=== PATIENT | female | born 1940 | race Caucasian/White ===

== ENCOUNTER 2016-05-31 16:34 | Inpatient (IN) ==
[2016-05-31] MEDS ORDERED: MORPHINE IM ONE (16:45)
[2016-05-31] MEDS ORDERED: ZOFRAN IM ONE (16:45)
--- NOTE | 2016-05-31 16:45 | PROVIDER DOCUMENTATION ---
HPI-Musculoskeletal Pain/Inj - GENERAL Source: patient - HX OF PRESENT ILLNESS-MUSKULOSKELTAL Quality of Pain: reports: aching Severity in ED: mild Onset/Duration: this morning Timing: still present Modifying Factors: improves with: nothing Any recent injury?: Yes (fell ) Locality of Occurance: Home Similar Symptoms Previously?: No Recently seen or treated by another doctor?: No - FALL INJURY Location of Pain/Injury: reports: lower extremity (R hip) Pain Radiation: reports: no radiation Reason for Fall: reports: tripped Symptoms prior to fall:: reports: none Loss of Consciousness: no loss of consciousness Injury Associated Symptoms: denies: arm pain, back/neck pain, chest pain, diaphoresis, dizziness, headaches, joint pain, muscle aches, nausea, puncture wound, shortness of breath, sensory/motor loss, snap/crack/pop sensation, pain with inspiration, unable to bear weight, vomiting, weakness, trouble walking - HIP/PELVIS PAIN/INJURY Hip Pain Location: reports: hip (R) Pain Radiation: reports: upper legs (R upper thigh) Context / Method of Injury: reports: fall Associated Symptoms: denies: loss of bladder control, loss of bowel control, lower back pain, muscle spasms, numbness in legs/feet, sensory/motor loss, tingling in legs/feet, weakness in legs/feet - LOWER EXTREMITY PAIN/INJURY Lower Extremities Pain: thigh: right (upper thigh ) Context / Method of Injury: reports: fell Associated Symptoms: denies: loss of bladder control, loss of bowel control, lower back pain, muscle spasms, numbness in legs/feet, sensory/motor loss, tingling in legs/feet, weakness in legs/feet <Samanta Jauregui - Last Filed: 05/31/16 17:27> <Greer Carbajal - Last Filed: 05/31/16 18:44> <Jin Milligan - Last Filed: 05/31/16 18:53> - GENERAL Stated Complaint: FALL, RT HIP PAIN, RT FEMUR PAIN Time Seen by Provider: 05/31/16 16:40 - HX OF PRESENT ILLNESS-MUSKULOSKELTAL Nature of Presenting Problem: Pt is 75 y/o F presents to the ED with R hip pain. Pt states she was vacuuming and tripped and fell on R lateral hip. Pt denies LOC. Pt denies any other injuries. Pt states she is on blood thinners (Samanta Jauregui) Review of Systems - Adult - REVIEW OF SYSTEMS - ADULT Constitutional: reports: no symptoms reported Eyes: reports: no symptoms reported Ears, Nose, Mouth & Throat: reports: no symptoms reported Cardiovascular: reports: no symptoms reported Respiratory: reports: no symptoms reported Gastrointestinal: reports: no symptoms reported Genitourinary: reports: no symptoms reported Musculoskeletal: reports: joint pain (R hip), other (R thigh pain). denies: bone pain, neck pain Integumentary: reports: no symptoms reported Neurological: reports: no symptoms reported Psychiatric: reports: no symptoms reported Endocrine: reports: no symptoms reported Hematologic/Lymphatic: reports: no symptoms reported Allergic/Immunologic: reports: no symptoms reported All Other Systems: Reviewed and Negative <Samanta Jauregui - Last Filed: 05/31/16 17:27> Past History - Adult - PAST MEDICAL HISTORY-ADULT Review of Records: reports: Nursing Assessment Review, Medications Reviewed, Social history reviewed & non-contributory. Major Childhood Illnesses: reports: denies history Cardiovascular: reports: HTN Respiratory: reports: denies history Gastrointestinal: reports: denies history Obstetrical/Gynecological: reports: denies history Genitourinary: reports: denies history Musculoskeletal: reports: denies history Neurological: reports: denies history Endocrine/Immune: reports: Diabetes Other Conditions: reports: denies history - PRIOR SURGERIES/PROCEDURES Surgical/Procedure History: reports: reviewed, not pertinent - IMMUNIZATION STATUS Childhood Immunizations: See Nurse Assessment Flu Vaccine: See Nurse Assessment - FAMILY HISTORY Family History: reviewed, not pertinent - SOCIAL HISTORY Smoking: denies Substance Use: denies Living Situation: family <Samanta Jauregui - Last Filed: 05/31/16 17:27> Physical Exam-Injury Related - Physical Exam-Injury Related Initial Vital Signs Reviewed: Yes General Appearance: appears well, alert, no apparent distress Eyes: PERRL/EOMI, pink conjunctivae, fundi clear, no AV nicking Head, Ears, Nose, Mouth & Throat: normocephalic/atraumatic, moist mucous membranes, normal ENT inspection, TMs normal, pharynx normal Neck: non-tender, full range of motion, supple, normal inspection Respiratory: chest non-tender, lungs clear, normal breath sounds, no pleuratic chest pain, no respiratory distress, no accessory muscle use Cardiovascular: normal peripheral pulses, regular rate, rhythm, no edema, no gallop, no JVD, no murmur Peripheral Pulses: dorsalis-pedis (R): 2+, dorsalis-pedis (L): 2+ Abdominal Exam: normal bowel sounds, non tender, soft, no organomegaly, no pulsatile mass Lymphatic: no adenopathy Back Exam: normal inspection, no CVA tenderness, no vertebral tenderness Extremity: normal range of motion, normal gait, no pedal edema, no calf tenderness, normal capillary refill, tenderness (point tenderness to lateral R thigh) Integumentary: normal color, warm/dry Neurologic: grossly normal Psych/Mental Status: normal mood/affect, oriented x 3 <Samanta Jauregui - Last Filed: 05/31/16 17:27> Progress <Samanta Jauregui - Last Filed: 05/31/16 17:27> - CT/MRI 1 CT Study: Cervical Spine Impression: Normal CT Results: No fx/subluxation, degen facet disease C2-3, 3-4 on L: Dr. Ball( rad) 2 CT Study: Head Impression: Normal CT Results: chronic ischemic white matter disease, no bleed or mass:Dr. Ball (rad) 3 CT Study: Pelvis Impression: Abnormal (No fx. Rt hamstring hematoma, at least 7 cm. Gas in bladder, possible emphysematous cystitis: Dr. Ball(radiologist)) <Greer Carbajal - Last Filed: 05/31/16 18:44> <Jin Milligan - Last Filed: 05/31/16 18:53> - PLAN OF CARE/RESULTS Progress/Plan/Lab Results: Orders Category Date Time Status HEAD/C-SPINE W/O CONTRAST [CT] Stat Exams 05/31/16 16:41 Ordered PELVIS W/O CONTRAST [CT] Stat Exams 05/31/16 16:41 Ordered Morphine Med 05/31/16 16:45 Once 2 mg IM NOW ONE Ondansetron [Zofran] Med 05/31/16 16:45 Once 4 mg IM NOW ONE Vital Signs - 24 hr 05/31/16 17:17 Temperature 97.5 F L Pulse Rate 90 Respiratory 18 Rate Blood Pressure 126/59 O2 Sat by Pulse 98 Oximetry (Samanta Jauregui) Orders Category Date Time Status HEAD/C-SPINE W/O CONTRAST [CT] Stat Exams 05/31/16 16:41 Taken PELVIS W/O CONTRAST [CT] Stat Exams 05/31/16 16:41 Taken CefTRIAXONE 1 GM/NS [Rocephin 1 gm/Ns] 50 ml Med 05/31/16 18:49 Active IV NOW Morphine Med 05/31/16 16:45 Discontinued 2 mg IM NOW ONE Morphine Med 05/31/16 17:39 Discontinued 2 mg IV NOW ONE Morphine Med 05/31/16 18:49 Once 2 mg IV NOW ONE Ondansetron [Zofran] Med 05/31/16 16:45 Discontinued 4 mg IM NOW ONE Ondansetron [Zofran] Med 05/31/16 17:39 Discontinued 4 mg IV NOW ONE Vital Signs Temp Pulse Resp BP Pulse Ox 05/31/16 17:17 97.5 F L 90 18 126/59 98 No Known Allergies Allergy (Verified 05/31/16 17:35) Amlodipine [Norvasc] 5 mg PO HS 09/18/13 Glipizide [Glipizide ER] 10 mg PO BID 09/18/13 Isosorbide Mononitrate E.r. [Imdur] 75 mg PO HS 09/18/13 Lisinopril 40 mg PO DAILY 09/18/13 Metformin [Glucophage] 1,000 mg PO BID 09/18/13 Metoprolol [Lopressor] 40 mg PO HS 09/18/13 Clopidogrel Bisulfate [Plavix] 75 mg PO DAILY #0 12/02/15 Aspirin 325 mg PO DAILY 05/31/16 Pt is feeling well. She is currently seeing Dr. Francisco for her chronic bladder issues. Will d/c home. she will be in the care of her family carolyn. (Jin Milligan) Departure <Samanta Jauregui - Last Filed: 05/31/16 17:27> <Greer Carbajal - Last Filed: 05/31/16 18:44> - Departure Time of Disposition Order: 18:50 Certified Medical Emergency: Emergent <Jin Milligan - Last Filed: 05/31/16 18:53> - Departure DIAGNOSIS: Cystitis Hamstring injury Qualifiers: Encounter type: initial encounter Laterality: right Qualified Code(s): S76.301A - Unspecified injury of muscle, fascia and tendon of the posterior muscle group at thigh level, right thigh, initial encounter Disposition: HOME 01 Condition: Good Additional Instructions: Take medication as prescribed. Rest, ice and elevate leg. Follow up with an orthopedist and your urologist. ED Follow Up Instructions: You have been treated by a care provider in the Emergency Department. These instructions are being provided to you so you can have an understanding of how to care for yourself upon discharge. Upon discharge from the Emergency Department, you are responsible for making arrangements for follow-up care by a physician of your choice. Take all prescribed medications as directed. Return to the Emergency Department immediately for any new or worsening symptoms. You may call the Physician Referral phone number at [phone] to obtain a list of Physicians who are taking new patients. Prescriptions: Nitrofurantoin Monohyd/M-Cryst [Macrobid 100 mg Capsule] 100 mg PO BID #10 capsule Hydrocodone/APAP 5 mg/325 mg [Tresckow-5] 1 each PO Q6H PRN PRN #12 tablet PRN Reason: Pain Ondansetron HCl [Zofran] 4 mg PO Q4H PRN PRN #20 tablet PRN Reason: Nausea Referrals: None,PCP [Primary Care Provider] - Renae Hernandez MD [STAFF PHYSICIAN] - Vitaly Francisco MD [STAFF PHYSICIAN] - Attestation - Scribe Verification/Attestation Scribe:: Samanta Jauregui Acting as Scribe for:: Solomon Harrell Scribe documention review:: This chart was documented by a scribe and accurately reflects the service the provider performed and the decisions made by the provider. <Samanta Jauregui - Last Filed: 05/31/16 17:27> - Physician/ TINA Attestation Patient care was provided by Advanced Practice Provider:: Yes Advanced Practice Provider:: Jin Milligan Advanced Practice Provider documentation review:: The Mid-level provider documentation, treatment plan and medical decision making was reviewed by the physician who agrees with all treatment and medical decision making by the P. <Jin Milligan - Last Filed: 05/31/16 18:53> Physician Attestation
[2016-05-31] MEDS ORDERED: MORPHINE IV ONE ×2 (17:39→18:49)
[2016-05-31] MEDS ORDERED: ZOFRAN IV ONE (17:39)
[2016-05-31] MEDS ORDERED: ROCEPHIN 1 GM/NS 50 ML IV ONE (18:49)
[2016-05-31] MEDS ORDERED: NS 1,000 ML IV ONE (20:18)
[2016-05-31] MEDS ORDERED: DILAUDID IV ONE (20:31)
[2016-05-31 22:23] LABS: MANUAL DIFF NEEDED? NO
[2016-05-31 22:23] LABS: URINE MICRO REVIEW NEEDED? NO; URINE SOURCE CLEAN CATCH
[2016-05-31 22:28] LABS: BILIRUBIN URINE NEGATIVE (NEGATIVE); BLOOD URINE NEGATIVE (NEGATIVE); COLOR YELLOW; GLUCOSE URINE 100 mg/dL (NEGATIVE); LEUKOCYTES URINE MODERATE (NEGATIVE); NITRITE URINE NEGATIVE (NEGATIVE); PROTEIN URINE TRACE mg/dL (NEGATIVE); TURBIDITY URINE CLEAR (CLEAR); UROBILINOGEN URINE NORMAL (NORMAL)
[2016-05-31 22:28] LABS: BASO% 0.3 % (0.0-0.8); EOS# 0.11 X1000 (0.0-0.7); EOS% 0.7 % (0.0-10.0); HEMATOCRIT 29.6 % (37.0-47.0); HEMOGLOBIN 9.8 g/dL (12.0-16.0); IMM GRAN# 0.03 X1000 (0.0-0.04); IMM GRAN% 0.2 % (0.0-0.5); LYMPH# 2.41 X1000 (1.2-3.4); LYMPH% 16.3 % (20.5-51.1); MCHC 33.1 g/dL (33-37); MCV 90.5 FL (81-99); MONO# 0.91 X1000 (0.11-0.59); MONO% 6.1 % (1.7-9.3); MPV 10.8 FL (7.4-10.4); NEUT% 76.4 % (42.2-75.2); PLT 224 X1000 (130-400); RBC 3.27 XMIL (4.2-5.4)
[2016-05-31 22:29] LABS: UR EPITHELIAL CELLS >10 /HPF (<10); URINE BACTERIA 4+ /HPF; URINE CULTURE NEEDED? YES; URINE RBC <10 /HPF (<10); URINE WBC <10 /HPF (<10)
[2016-05-31 22:43] LABS: ALBUMIN 3.1 g/dL (3.5-5.0); POTASSIUM 4.9 mmol/L (3.5-5.1); TOTAL BILIRUBIN 0.16 mg/dL (0.20-1.00); TOTAL PROTEIN 5.9 g/dL (6.3-8.3)
[2016-06-01 00:01] LABS: INR 1.07; PROTIME 11.3 Seconds (9.2-11.7); PTT 23.6 Seconds (22.0-36.0)
[2016-06-01] MEDS ORDERED: NS 1,000 ML IV SCH (01:29)
[2016-06-01] MEDS ORDERED: TYLENOL PO PRN (01:29)
[2016-06-01] MEDS ORDERED: ZOFRAN IV PRN (01:29)
[2016-06-01] MEDS: PROTONIX IV SCH (02:27)
[2016-06-01] MEDS: MORPHINE IV PRN ×5 (02:27→23:19)
[2016-06-01] MEDS: SODIUM CHLORIDE 0.9% INJ SCH (02:27)
--- NOTE | 2016-06-01 03:32 | HISTORY AND PHYSICAL ---
PRIMARY CARE PROVIDER: Lars Bee MD CHIEF COMPLAINT: Fall with right hip pain. HISTORY OF PRESENT ILLNESS: Ms. Rodriguez is a 75-year-old female who reports that this evening she was vacuuming and tripped and fell, landing on her right lateral hip. The patient denies hitting her head. She denies any loss of consciousness. She denies any other injuries than her right hip and right upper leg pain. The patient does report that she takes Plavix and aspirin. Upon evaluation in the ER, the patient did have a CT head and C spine performed as well as a pelvis CT which were all negative for any acute injuries. After this initial evaluation in the ER, they did attempt to have the patient stand and try to ambulate, though upon standing the patient became very lightheaded, clammy, and had a near syncopal episode. She also reported that the pain upon standing in her right leg was excruciating. During this time, the patient's blood pressure was taken which did show a reading of 79/47. Secondary to this, the patient did have a normal saline 1 L bolus. As well, labs were ordered and the patient did go for further x-ray studies with a femur, [address] and x-rays were negative for any acute injury or fractures. The patient's hemoglobin and hematocrit are 9 and 29, which is a significant drop from the last known results in January of 2016 of hemoglobin 12.8 and hematocrit 38.6. The patient denies any known problem with anemia. Upon examination in the ER, the patient was found to be pale. Conjunctivae were pale as well. The patient has discoloration and swelling noted to her right upper leg in the lateral thigh and posterior thigh area. She also reports this area is very tender. She also reports that she is having pain from her hip down to her knee and this is a pressure type pain. She denies any headache. She did report some dizziness, though this was upon standing when she had her near syncopal episode. She denies any chest pain, shortness of breath, nausea, vomiting, or constipation. The patient reports that she has been having diarrhea for quite some time, though she reports this started when she began taking metformin. The patient denies any dysuria or urinary frequency, though does report that for the past 2 months, she has had lower abdominal pain as well as lower back pain. She does have a long history of chronic cystitis and recently did undergo surgery for correction of a bladder diverticulum by Dr. Francisco. She reports that since this surgery, her number of urinary tract infections has decreased, though her symptoms of lower abdominal pain as well as back pain are the symptoms she normally experiences when she has a urinary tract infection. She states that she has not seen her doctor for her urinary symptoms and was going to try to let her body take care of this on its own. Other than her right hip and right upper leg pain, the patient denies any other pain or injuries. At this time, we will admit the patient for further treatment and evaluation of her fall with right lower extremity injury and hematoma as well as her anemia. She will be admitted for observation services. REVIEW OF SYSTEMS: A 14-point review of systems was conducted with the patient and all were negative except for pertinent positives mentioned in the above HPI. PAST MEDICAL HISTORY: 1. Rheumatoid arthritis. 2. Chronic cystitis. 3. Cystocele. 4. Coronary artery disease status post myocardial infarction with percutaneous coronary intervention with 3 stents. 5. Hyperlipidemia. 6. Hypertension. 7. Insomnia. 8. Back pain. 9. Osteoporosis. 10.Diabetes mellitus type 2. 11.COPD. 12.Peripheral vascular disease. PAST SURGICAL HISTORY: 1. Percutaneous coronary intervention with stent placement x3. 2. Right carotid stent placement. 3. Recent laparoscopic bladder diverticulectomy in November of 2015. 4. History of renal stone with lithotripsy. SOCIAL HISTORY: The patient denies any past or present tobacco, alcohol or illicit drug use. She is and lives with her . FAMILY HISTORY: Positive for coronary artery disease, hypertension, diabetes mellitus. ALLERGIES: The patient reports no known allergies. HOME MEDICATIONS: 1. Aspirin 325 mg p.o. daily. 2. Norvasc 5 mg p.o. at nighttime. 3. Imdur 75 mg p.o. at nighttime. 4. Metformin 1000 mg p.o. b.i.d. 5. Lisinopril 40 mg p.o. daily. 6. Glipizide extended release 10 mg p.o. b.i.d. 7. Plavix 75 mg p.o. daily. 8. Metoprolol 50 mg p.o. at nighttime. 9. Zofran 4 mg p.o. every 4 hours p.r.n. for nausea. 10.Jachin 5 mg p.o. every 6 hours p.r.n. for pain. DIAGNOSTIC DATA AND LABORATORY RESULTS: White blood cell count 14.83, hemoglobin 9.8, hematocrit 29.6, platelet count 224. PT 11.3, INR 1.07, PTT 23.6. Sodium 141, potassium 4.9, chloride 105, bicarb 19, BUN 21, creatinine 1.0, GFR 54, glucose 206, calcium 8. Liver function tests are within normal limits. Urinalysis was obtained via cath, was positive for trace protein, glucose, moderate leukocytes, greater than 10 epithelial cells and 4+ bacteria, though was nitrite negative. CT head, C spine. On C spine, no fracture or subluxation noted. Degenerative facet disease at C2-C3, as well as C3-C4 on the left. CT of the head showed chronic ischemic white matter disease. No blood or mass. CT pelvis without contrast showed no fracture. There is a right hamstring hematoma noted, at least 7 cm. There was gas noted in the bladder which could be possible emphysematous cystitis. Femur, right, 2 view showed no acute abnormality. PENDING DIAGNOSTIC STUDIES AT THIS TIME: EKG and repeat CBC and BMP as well as orthostatic vitals. PHYSICAL EXAMINATION: VITAL SIGNS: Temperature 97.5. Heart rate 91. Respirations 18. Blood pressure 121/61. Oxygen saturation is 94% on room air. L. GENERAL: The patient is a well-nourished, well-developed, pleasant, 75-year-old female who was resting in the ER stretcher. Though she was experiencing some right lower extremity pain, she did not appear to be in any distress. She was awake, alert, and able to answer all questions appropriately. HEENT: Head is atraumatic, normocephalic. Pupils are equal, round, reactive to light, 3 mm bilaterally, and brisk. Conjunctivae pale. Oral mucosa is slightly dry. Oropharynx is clear. NECK: Supple. Trachea midline. No carotid bruits noted upon auscultation bilaterally. CARDIOVASCULAR: Normal S1, S2. No murmurs, gallops or rubs appreciated. Regular rate and rhythm. PULMONARY: The patient has symmetrical chest expansion bilaterally. Lung sounds were clear to auscultation in bilateral full harp. ABDOMEN: The abdomen is soft and nondistended. The patient did report some slight tenderness upon palpation of the lower abdomen in the suprapubic area. There was no rebound tenderness noted. Bowel sounds were present in all four quadrants, were slightly hypoactive. EXTREMITIES: No cyanosis, clubbing or edema noted. Pulse, motor and sensory intact in all extremities. Pedal pulses are 3+ bilaterally. The patient does have discoloration as well as slight swelling noted in the right lateral hip and thigh area. This area is also very tender upon palpation. INTEGUMENTARY: The patient's skin color is pale, dry and intact. No lesions or sores noted except for discoloration as mentioned above extremity exam. NEUROLOGIC: Patient is alert and oriented to person, place, time and situation. Cranial nerves II through XII are grossly intact. ASSESSMENT AND PLAN: 1. Fall with right lower extremity injury and hematoma. There is no acute fracture noted, though the patient did experience a lot of pain upon trying to stand and ambulate. She also did experience a near syncopal episode which could be likely secondary to orthostatic hypotension and possibly acute blood loss. There is concern that the patient is bleeding into the area of her hematoma in the right upper leg. The patient did receive a 1 L normal saline bolus. Will continue normal saline infusion at 85 mL per hour. The patient is anemic. We will repeat a CBC in 8 hours to monitor for any need for transfusion. At this time, the patient's vital signs have returned to baseline, though we will closely monitor this as well. We will also have physical therapy evaluate the patient in the morning. Will continue to follow. 2. Anemia. Will continue with treatment as mentioned above and continue to follow. 3. Coronary artery disease. The patient does have a history of coronary artery disease with percutaneous coronary intervention with 3 stents placed. She also has some peripheral vascular disease and has had a right carotid stent placed as well. She reports that she currently is taking 325 mg of aspirin daily as well as Plavix. Due to the patient's extensive cardiac history, we will continue her 81 mg of aspirin at this time, though will hold her Plavix due to risk of bleeding and continue to follow. 4. Hyperlipidemia. Will continue the patient's pravastatin 40 mg daily. 5. Hypertension. Will continue the patient's blood pressure medicines of Lopressor 25 mg p.o. at nighttime as well as Norvasc 5 mg p.o. at nighttime. We have held her lisinopril and Imdur at this time. 6. Diabetes mellitus type 2. The patient usually takes metformin and glipizide. Her creatinine is slightly elevated at 1 with a GFR of 54. We will hold these at this time and place her on a Lispro low dose sliding scale. 7. Chronic cystitis. The patient has a history of recurrent urinary tract infections. Her urinalysis did show moderate leukocytes and 4+ bacteria though did have greater than 10 epithelial cells and was nitrite negative. Given her history of chronic cystitis as well as frequent antibiotic use and her urine having greater than 10 epithelial cells, we have decided to hold off on treating the patient with antibiotics at this time. Will await her urine culture results and continue to follow. The patient will be placed on the medical floor with telemetry. She will have vital signs every 4 hours. Will do pattern fingerstick blood sugars. She will be on a diabetic diet. GI prophylaxis will be provided with Protonix 40 mg IV every 24 hours. DVT prophylaxis will be provided with SCDs if the patient can tolerate this. Further orders and recommendations pending hospital course, diagnostic studies and physician evaluation. Dictated by MIRIAM Isbell for Kristen Ramos MD
--- NOTE | 2016-06-01 05:24 | EKG Report ---
Test Performed on : 06/01/2016 00:21:13 AM Test Reason : Fall, Near Syncope Blood Pressure : / mmHG Vent. Rate : 084 BPM Atrial Rate : 084 BPM P-R Int : 144 ms QRS Dur : 084 ms QT Int : 400 ms P-R-T Axes : 055 050 039 degrees QTc Int : 472 ms Normal sinus rhythm. Normal ECG When compared with ECG of 18-SEP-2013 14:09, Nonspecific T wave abnormality now evident in Inferior leads Unconfirmed Result
[2016-06-01 06:03] LABS: MANUAL DIFF NEEDED? NO
[2016-06-01 06:19] LABS: BASO% 0.2 % (0.0-0.8); EOS# 0.11 X1000 (0.0-0.7); EOS% 1.1 % (0.0-10.0); HEMATOCRIT 25.1 % (37.0-47.0); HEMOGLOBIN 8.3 g/dL (12.0-16.0); IMM GRAN# 0.02 X1000 (0.0-0.04); IMM GRAN% 0.2 % (0.0-0.5); LYMPH# 2.67 X1000 (1.2-3.4); LYMPH% 25.8 % (20.5-51.1); MCH 30.1 PG (27-31); MCHC 33.1 g/dL (33-37); MCV 90.9 FL (81-99); MONO# 0.81 X1000 (0.11-0.59); MONO% 7.8 % (1.7-9.3); MPV 10.5 FL (7.4-10.4); NEUT% 64.9 % (42.2-75.2); PLT 202 X1000 (130-400); RBC 2.76 XMIL (4.2-5.4)
[2016-06-01 06:28] LABS: AGAP 13; BUN 19 mg/dL (8-22); CALCIUM 7.7 mg/dL (8.8-10.2); CHLORIDE 107 mmol/L (98-107); COSMO 283; POTASSIUM 4.2 mmol/L (3.5-5.1); SODIUM 139 mmol/L (136-145); TCO2 19 mmol/L (25-35)
--- NOTE | 2016-06-01 07:27 | Diag Imaging Result Document ---
PROCEDURE NAME: HEAD/C-SPINE W/O CONTRAST - 05/31/[address]: A CT dose reduction protocol was used. COMPARISON: None. FINDINGS: The ventricles and sulci are normal in size and contour. No intracranial mass or hemorrhage. There is mild cerebral white matter chronic microvascular disease. The skull is intact. The sinuses, mastoids, and middle ears are clear. IMPRESSION: No acute disease. CT CERVICAL SPINE: A CT dose reduction protocol was used. COMPARISON: None. FINDINGS: Alignment is anatomic. No evidence of fracture or subluxation. There is degenerative disk disease at C5-C6. There is multilevel facet degeneration notably on the left. There are metallic stents in the right carotid artery system. The soft tissues are, otherwise, clear. IMPRESSION: Moderate cervical spondylosis. No acute disease. [facility]
--- NOTE | 2016-06-01 07:30 | Diag Imaging Result Document ---
PROCEDURE NAME: PELVIS W/O CONTRAST - 05/31/2016 CT PELVIS: A CT dose reduction protocol was used. COMPARISON: None. FINDINGS: There is a large intramuscular hematoma in the right hamstring musculature. No fracture or dislocation. There is severe peripheral vascular disease. There is also severe disease of the distal aorta and its branches. There is very severe diverticulosis coli. No bowel obstruction or inflammation. There is air in the urinary bladder. Correlate with recent catheterization. Uterus and rectum are, otherwise, normal. IMPRESSION: 1. Large right hamstring intramuscular hematoma. 2. Unusual gas in the urinary bladder. Correlate with possible catheterization. Emphysematous cholecystitis may be suggested, otherwise, however. 3. Diverticulosis coli. [facility]
--- NOTE | 2016-06-01 08:14 | Diag Imaging Result Document ---
PROCEDURE NAME: KNEE 3 VIEWS RIGHT - 05/31/2016 PLAIN RADIOGRAPH OF THE RIGHT KNEE, 2 VIEWS: COMPARISON: None available. FINDINGS: There is a subtle oblique lucency seen at the medial tibial plateau worrisome for a nondisplaced fracture. There is a questionable lucency seen at the head of the fibula as well. Likewise, a nondisplaced fracture cannot be excluded. The bones do appear to be somewhat osteopenic. The joint space appears to be relatively well preserved. IMPRESSION: Findings worrisome for a subtle nondisplaced fracture involving the medial tibial plateau and possibly the proximal fibula as well. Please correlate clinically and consider a followup radiograph in 7-10 days to confirm.
--- NOTE | 2016-06-01 08:16 | Diag Imaging Result Document ---
PROCEDURE NAME: FEMUR MIN 2 VIEWS RIGHT - 05/31/2016 PLAIN RADIOGRAPH OF THE RIGHT FEMUR, 4 VIEWS: COMPARISON: None available. FINDINGS: There are degenerative changes at the right hip. There is no evidence of fracture, dislocation, or intrinsic osseous lesion involving the right femur specifically. There is atherosclerotic calcification in the thigh. Surrounding soft tissues are essentially unremarkable, otherwise. IMPRESSION: 1. No evidence of acute osseous abnormality involving the right femur. 2. Please see separate knee radiograph report for findings suggestive of possible fractures involving the proximal tibia and proximal fibula.
[2016-06-01] MEDS: ASPIRIN PO SCH (09:43)
[2016-06-01] MEDS: HUMULIN R SUBQ SCH ×3 (11:18→20:05)
--- NOTE | 2016-06-01 16:10 | CONSULTATION ---
DATE OF CONSULTATION: 06/01/2016 ADMITTING PHYSICIAN: Dr. Ramos. CONSULTING PHYSICIAN: Dr. Fransisco Plaza. CHIEF COMPLAINT: Right lower extremity pain. HISTORY OF PRESENT ILLNESS: Mrs. Rodriguez is a 75-year-old, white female who experienced a fall at home yesterday afternoon while vacuuming. She fell on her right hip, experienced pain and was unable to bear weight thereafter. She was brought to the emergency room for evaluation via ambulance where radiographic examination revealed findings consistent with a minimally displaced medial tibial plateau fracture. She denies any loss of consciousness or change in mentation or associated injuries. PRIMARY CARE PROVIDER: Dr. Jin Bee. ALLERGIES: No known drug allergies. PAST MEDICAL HISTORY: 1. Rheumatoid arthritis, osteoarthritis. 2. Coronary artery disease. 3. Hypertension. 4. Chronic obstructive pulmonary disease. 5. Bzn-gjhlhsx-bjftezncy diabetes mellitus. 6. Peripheral vascular disease. 7. Chronic back pain. 8. Osteoporosis. 9. Carotid artery disease. 10. Insomnia. 11. Hyperlipidemia. 12. Diverticulosis. PAST SURGICAL HISTORY: 1. Percutaneous transluminal coronary angioplasty x3. 2. Right carotid artery stent placement. 3. Laparoscopic bladder diverticulectomy. SOCIAL HISTORY: The patient is . She is a nonsmoker. She maintains a residence with her . CURRENT MEDICATIONS: 1. Pravachol 40 at bedtime. 2. Aspirin 325 daily. 3. Norvasc 5 mg at bedtime. 4. Imdur 75 mg by mouth at bedtime. 5. Metformin 1000 mg by mouth twice daily. 6. Lisinopril 40 mg daily. 7. Glipizide ER 10 mg by mouth twice daily. 8. Plavix 75 mg by mouth daily. 9. Lopressor 40 mg at bedtime. 10. Zofran 4 mg every 4 hours as necessary. 11. Macrobid 100 mg by mouth twice daily as directed. 12. [place] 5/325, 1 tablet by mouth every 6 hours as needed. REVIEW OF SYSTEMS: No known history of stroke. She does have a history of carotid artery disease having underwent a stent placement in her right carotid artery. Denies dizziness or recent syncopal episodes.Cardiac: She has a longstanding history of coronary artery disease having previously underwent percutaneous transluminal coronary angioplasty. She denies chest pain, pressure, or other anginal equivalents at this time. She is treated for hypertension as well. Pulmonary: She has history of chronic obstructive pulmonary disease. She is a nonsmoker. Gastrointestinal: She has been troubled with some recent diarrhea since the start of her metformin prescription. She also has evidence of diverticulosis. Genitourinary: She has a history of chronic cystitis. She recently underwent a laparoscopic bladder diverticulectomy. Neurological: She is treated for insomnia. Musculoskeletal: A longstanding history of rheumatoid arthritis, osteoarthritis and she is here today for a right lower extremity fracture. Other: She is treated for non-insulin dependent diabetes mellitus, peripheral vascular disease and osteoporosis. PHYSICAL EXAMINATION: General: The patient is resting comfortably in bed. She is articulate and able answer all questions fully. She has family at her bedside. HEENT: Head is normocephalic, atraumatic. Pupils are equal, round, react to light. Nares are patent. Throat without exudate. Neck: Supple. Heart: Regular rate and rhythm. No murmurs, gallops, or rubs. Lungs: Clear to auscultation bilaterally. Abdomen: Round, bowel sounds are present. The abdomen is nontender. Genitourinary: She has a Shirley catheter in place. Neurological: Gross motor function is intact. Musculoskeletal: Right lower extremity, she has some edema and ecchymosis of the right lower extremity. She is unable to move her leg due to pain. She has some ecchymosis on her lateral right thigh. Neurovascular status is intact with a good peripheral pulse. Other: She has intravenous access in her right arm. IMPRESSION: Right lower extremity minimally displaced medial tibial plateau fracture as well as a proximal nondisplaced fibula fracture. PLAN: We recommend nonoperative management with bracing of the right lower extremity and nonweightbearing for at least 6 weeks. We will follow her up as an outpatient when she is medically cleared. Thank you for including us in the care of Ms. Rodriguez. We will continue to follow her with you and if you need any additional assistance please do not hesitate to ask. Dictated by KRISHNA Be for Fransisco Plaza MD
[2016-06-01 16:59] LABS: HEMATOCRIT 30.8 % (37.0-47.0); HEMOGLOBIN 10.3 g/dL (12.0-16.0)
[2016-06-01] MEDS: LOPRESSOR PO SCH (20:04)
[2016-06-01] MEDS: NORVASC PO SCH (20:04)
[2016-06-01] MEDS: PRAVACHOL PO SCH (20:04)
[2016-06-01] MEDS: ROCEPHIN 1 GM/NS 50 ML IV SCH (20:05)
[2016-06-01] MEDS ORDERED: LOPRESSOR PO SCH (21:00)
[2016-06-02] MEDS: PROTONIX IV SCH (02:30)
[2016-06-02] MEDS: SODIUM CHLORIDE 0.9% INJ SCH (02:30)
[2016-06-02] MEDS: MORPHINE IV PRN ×5 (02:33→22:52)
[2016-06-02 06:21] LABS: MANUAL DIFF NEEDED? NO
[2016-06-02 06:29] LABS: BASO% 0.1 % (0.0-0.8); EOS# 0.11 X1000 (0.0-0.7); EOS% 1.2 % (0.0-10.0); HEMATOCRIT 28.8 % (37.0-47.0); HEMOGLOBIN 9.9 g/dL (12.0-16.0); LYMPH# 2.29 X1000 (1.2-3.4); LYMPH% 24.9 % (20.5-51.1); MCH 30.6 PG (27-31); MCHC 34.4 g/dL (33-37); MCV 88.9 FL (81-99); MONO# 0.81 X1000 (0.11-0.59); MONO% 8.8 % (1.7-9.3); MPV 10.7 FL (7.4-10.4); PLT 194 X1000 (130-400); RBC 3.24 XMIL (4.2-5.4)
[2016-06-02] MEDS: HUMULIN R SUBQ SCH ×5 (06:55→22:31)
[2016-06-02 06:58] LABS: AGAP 15; ALBUMIN 3.1 g/dL (3.5-5.0); ALKALINE PHOSPHATASE 46 U/L (32-104); BUN 11 mg/dL (8-22); CHLORIDE 100 mmol/L (98-107); COSMO 274; GOT 14 U/L (10-30); GPT 12 U/L (10-36); POTASSIUM 4.1 mmol/L (3.5-5.1); SODIUM 135 mmol/L (136-145); TCO2 20 mmol/L (25-35); TOTAL BILIRUBIN 0.43 mg/dL (0.20-1.00); TOTAL PROTEIN 6.1 g/dL (6.3-8.3)
[2016-06-02] MEDS: LOPRESSOR PO SCH ×3 (09:17→22:32)
[2016-06-02] MEDS: ASPIRIN PO SCH (09:17)
[2016-06-02] MEDS ORDERED: ZOFRAN IV PRN (13:36)
[2016-06-02] MEDS ORDERED: AMBIEN PO PRN (13:37)
--- NOTE | 2016-06-02 17:17 | PROGRESS NOTE ---
DATE: 06/02/2016 SUBJECTIVE: Patient still remains quite sore in the right leg. She is in a knee immobilizer on the right. Still having some swelling in the right gluteal right upper thigh laterally and pain, but inferior to the right knee physical therapy has begun. OBJECTIVE: Vital Signs: Afebrile. Pulse 86 to 99, respirations 14-18, BP 164/61, O2 saturation on room air 98 to 100%. Cardiovascular: RRR. Lungs: CTA. Abdomen: Nontender. Extremity: Left lower extremity without edema. Right lower extremity in knee immobilizer with some tenderness inferior to the right knee prominently. Some bruising right hip/thigh area. LAB DATA: Shows white count 9.1, hemoglobin stable at 9.9, platelets 194. Sodium 135, potassium 4.1, chloride 100, CO2 of 20. BUN 11, creatinine 0.7, glucose 186, calcium 8.0. Total bilirubin 0.43. AST 14, ALT 12, alkaline phosphatase 46, total protein 6.1, albumin 3.1. Urine culture is growing gram-negative tamia. ASSESSMENT: 1. Minimally displaced medial tibial plateau fracture and proximal nondisplaced fibula fracture. 2. Contusion right gluteal/thigh area. 3. Gram-negative urinary tract infection. 4. Obesity. 5. Osteoarthritis. 6. Coronary artery disease. 7. Hypertension. 8. Type 2 diabetes mellitus. 9. Chronic back pain. 10. Hyperlipidemia. PLAN: Continue physical therapy as per Dr. Plaza. Resume her home blood pressure and heart medications except for the Plavix. Will hold that 1 more day and re-initiate that in a couple of days. She remains on the aspirin and will continue that. Continue ice application to the right leg through today, and then may try some heat application. Will start prophylactic Lovenox in 1-2 days. Pain control will be pursued with low-dose opiates. Incentive spirometry will be added and continue Rocephin for UTI. Await final urine culture. employee services manager are working to try to find the patient a rehab bed as she will not be able to weight bear on the right leg for 6 weeks and she lives alone, and is overweight. cc: Lars Bee MD
[2016-06-02] MEDS: IMDUR PO SCH ×2 (19:50→22:32)
[2016-06-02] MEDS: PRAVACHOL PO SCH ×2 (19:50→22:32)
[2016-06-02] MEDS: NORVASC PO SCH ×2 (19:51→22:32)
[2016-06-02] MEDS: ROCEPHIN 1 GM/NS 50 ML IV SCH (19:51)
[2016-06-03] MEDS: MORPHINE IV PRN ×3 (04:25→20:05)
[2016-06-03] MEDS: PROTONIX IV SCH (04:40)
[2016-06-03] MEDS: HUMULIN R SUBQ SCH ×4 (07:00→21:00)
[2016-06-03] MEDS: LOPRESSOR PO SCH ×2 (09:45→20:50)
[2016-06-03] MEDS: PRINIVIL PO SCH (09:45)
[2016-06-03] MEDS: ASPIRIN PO SCH (09:45)
--- NOTE | 2016-06-03 14:19 | PROGRESS NOTE ---
DATE: 06/03/2016 INTERVAL HISTORY: Reviewed for Dr. Bee. She is a 75-year-old pleasant white female, admitted to the hospital on 06/01/2016 with a fall sustaining injury to the right leg. She developed a large hematoma and also right medial tibial plateau and patellar fracture. She was seen by the orthopedic professional housing consultant. Upon questioning, patient complains of pain. REVIEW OF SYSTEMS: HEENT: No headache. No vision problem. No earache. No sore throat. Neck: No goiter. No lymphadenopathy. No bruits. Cardiopulmonary: No chest pain, shortness of breath, PND, orthopnea. GI: No nausea, vomiting, abdominal pain. Pain in the right leg, on immobilizer. Neurologic: No obvious focal symptoms OBJECTIVE: General: The patient is in not in respiratory distress. Vital Signs: Afebrile and hemodynamics are stable. HEENT: Atraumatic, normocephalic. Pupils equal, react to light. TMs are normal. Neck: Supple. No lymphadenopathy. Chest: Bilateral air entry. Heart: Sounds are regular. No murmur. Abdomen: Belly is soft, protuberant, obese. No signs of peritonitis. Extremities: Has immobilizer on the right knee. Neurologic: Grossly intact. INVESTIGATIONS: CBC reported hematocrit 25. ASSESSMENT AND PLAN: 1. Anemia due to acute blood loss from hematoma. In light of existing PAD and CAD, we will give a 1 unit of transfusion of packed RBCs. 2. Hypertension on Norvasc 5 mg daily, lisinopril 40 mg daily, metoprolol 50 mg daily. 3. Type 2 diabetes on metformin 1000 p.o. b.i.d. 4. Coronary artery disease. Continue on Plavix and beta blockers. 5. Possible urinary tract infection. On Macrobid. 6. Hyperlipidemia on pravastatin. We will check the CBC and BMP in the morning and once her situation is controlled, we will keep her out of the bed with physical therapy, and follow up. cc: MD Lars Chatterjee MD
[2016-06-03 16:45] LABS: AGAP 15; BUN 14 mg/dL (8-22); CALCIUM 7.8 mg/dL (8.8-10.2); CHLORIDE 98 mmol/L (98-107); COSMO 272; POTASSIUM 4.2 mmol/L (3.5-5.1); SODIUM 133 mmol/L (136-145); TCO2 20 mmol/L (25-35)
[2016-06-03 16:57] LABS: HEMATOCRIT 25.7 % (37.0-47.0); HEMOGLOBIN 8.8 g/dL (12.0-16.0); MCH 30.3 PG (27-31); MCHC 34.2 g/dL (33-37); MCV 88.6 FL (81-99); MPV 10.3 FL (7.4-10.4); RBC 2.9 XMIL (4.2-5.4)
[2016-06-03] MEDS: NORVASC PO SCH (20:50)
[2016-06-03] MEDS: IMDUR PO SCH (20:50)
[2016-06-03] MEDS: ROCEPHIN 1 GM/NS 50 ML IV SCH (20:50)
[2016-06-03] MEDS: PRAVACHOL PO SCH (20:50)
[2016-06-04] MEDS: MORPHINE IV PRN ×4 (05:14→22:48)
[2016-06-04] MEDS: SODIUM CHLORIDE 0.9% INJ SCH (05:14)
[2016-06-04] MEDS: PROTONIX IV SCH (05:14)
[2016-06-04 06:30] LABS: MANUAL DIFF NEEDED? NO
[2016-06-04 06:36] LABS: BASO% 0.3 % (0.0-0.8); EOS# 0.18 X1000 (0.0-0.7); EOS% 2.8 % (0.0-10.0); HEMATOCRIT 28.5 % (37.0-47.0); HEMOGLOBIN 9.6 g/dL (12.0-16.0); LYMPH# 1.54 X1000 (1.2-3.4); LYMPH% 23.8 % (20.5-51.1); MCH 29.7 PG (27-31); MCHC 33.7 g/dL (33-37); MCV 88.2 FL (81-99); MONO# 0.65 X1000 (0.11-0.59); MONO% 10.1 % (1.7-9.3); MPV 10.2 FL (7.4-10.4); PLT 210 X1000 (130-400); RBC 3.23 XMIL (4.2-5.4)
[2016-06-04 06:49] LABS: AGAP 12; BUN 15 mg/dL (8-22); CALCIUM 8.1 mg/dL (8.8-10.2); CHLORIDE 97 mmol/L (98-107); COSMO 269; POTASSIUM 4.6 mmol/L (3.5-5.1); SODIUM 131 mmol/L (136-145); TCO2 22 mmol/L (25-35)
[2016-06-04] MEDS: HUMULIN R SUBQ SCH ×4 (06:54→23:05)
[2016-06-04] MEDS: PRINIVIL PO SCH (09:13)
[2016-06-04] MEDS: LOPRESSOR PO SCH ×2 (09:13→23:06)
[2016-06-04] MEDS: ASPIRIN PO SCH (09:14)
[2016-06-04] MEDS ORDERED: VENOFER IV ONE (12:10)
--- NOTE | 2016-06-04 12:42 | PROGRESS NOTE ---
DATE: 06/04/2016 INTERVAL HISTORY: The patient did receive 2 units of packed RBCs. No complaints of chest pain, shortness of breath. The patient did not have a Shirley. Urine cultures grew Klebsiella. No dysuria. The daughter was there at the bedside. Family decided to go for rehab. PAST MEDICAL HISTORY: Reviewed. PAST SURGICAL HISTORY: Reviewed. MEDICATIONS: Reviewed. REVIEW OF SYSTEMS: None reported. OBJECTIVE: Vital signs: Stable. Afebrile. Pulse is 94, blood pressure is 136/57, 97% on room air. HEENT: Atraumatic, normocephalic. Pupils equal, reactive to light. Neck: Supple. No lymphadenopathy. Chest: Clear to auscultation. Heart: Sounds are regular. Abdomen: Belly is soft, nontender. Good bowel sounds. Extremities: Right leg has been in an immobilizer. Neurologic: Nonfocal. INVESTIGATIONS: On 06/04/2016: CBC: White cell count 6.4, hematocrit 28.5, platelets 210,000. SMA 7: Sodium 131, potassium 4.6, chloride 97, BUN 15, creatinine 0.8, glucose 194, calcium 8.1. Urine cultures grew Klebsiella sensitive to cefazolin and Levaquin. ASSESSMENT AND PLAN: 1. Status post right knee fracture on immobilizer. Conservative management. Needs physical therapy, out of the bed. 2. Patient will be at risk for having DVT prophylaxis. Antithrombotic stockings. 3. Anemia due to blood loss. Status post 2 units of packed RBCs, also 300 mg IV iron infusion. 4. Urinary tract infection due to Klebsiella. On IV ceftriaxone. 5. Coronary artery disease. 6. Hypertension, stable DISPOSITION: Out of bed with physical therapy. Consider rehab placement. director of physiotherapy services consult in the morning. Dr. Bee is going to follow. Repeat the labs in the morning. Discussed with her daughter. cc: MD Lars Chatterjee MD
[2016-06-04] MEDS ORDERED: VENOFER 300 MG in NS 250 ML IV ONE (13:00)
[2016-06-04] MEDS: ROCEPHIN 1 GM/NS 50 ML IV SCH (23:05)
[2016-06-04] MEDS: IMDUR PO SCH (23:05)
[2016-06-04] MEDS: PRAVACHOL PO SCH (23:06)
[2016-06-04] MEDS: NORVASC PO SCH (23:06)
[2016-06-05] MEDS: MORPHINE IV PRN ×5 (03:23→21:02)
[2016-06-05 05:51] LABS: HEMATOCRIT 28.1 % (37.0-47.0); HEMOGLOBIN 9.5 g/dL (12.0-16.0); MCH 30.4 PG (27-31); MCHC 33.8 g/dL (33-37); MCV 89.8 FL (81-99); MPV 9.8 FL (7.4-10.4); RBC 3.13 XMIL (4.2-5.4)
[2016-06-05 06:14] LABS: AGAP 11; BUN 17 mg/dL (8-22); CALCIUM 8.2 mg/dL (8.8-10.2); CHLORIDE 96 mmol/L (98-107); COSMO 268; POTASSIUM 4.6 mmol/L (3.5-5.1); SODIUM 131 mmol/L (136-145); TCO2 24 mmol/L (25-35)
[2016-06-05] MEDS: PROTONIX IV SCH (06:51)
[2016-06-05] MEDS: SODIUM CHLORIDE 0.9% INJ SCH (06:51)
[2016-06-05] MEDS: HUMULIN R SUBQ SCH ×4 (06:53→21:03)
[2016-06-05] MEDS: ASPIRIN PO SCH (09:18)
[2016-06-05] MEDS: PRINIVIL PO SCH (09:18)
[2016-06-05] MEDS: LOPRESSOR PO SCH ×2 (09:18→21:05)
--- NOTE | 2016-06-05 13:33 | PROGRESS NOTE ---
DATE: 06/05/2016 SUBJECTIVE: Patient overall doing well. Still having difficulty with pain and swelling in her right hip area, down the right leg. The right leg is in a knee immobilizer. Physical therapy continues to work with the patient, gradually to try to help improve mobilization. OBJECTIVE: Vital Signs: Afebrile. Pulse 79 and 105, blood pressure 92/56, O2 saturation on room air 92-97%. Cardiovascular: Regular rate and rhythm. Lungs: Clear to auscultation. Abdomen: Nontender. Extremities: Right lower extremity with moderate swelling and hematoma right upper thigh area. LAB DATA: Now status post 2 units PRBCs transfused. Hemoglobin stable at 9.5, white count 5.59, platelets 245,000. Sodium 131, potassium 4.6, chloride 96, CO2 24, BUN 17, creatinine 0.9. Blood sugar mid 200s to 180s. ASSESSMENT: 1. Nondisplaced fracture right tibia and fibula proximally. 2. Large hematoma right upper thigh/hip area. 3. Klebsiella urinary tract infection. 4. Type 2 diabetes mellitus. 5. Obesity. 6. Coronary artery disease. 7. Hypertension. 8. Anemia related to blood loss, now status post 2 units PRBCs and IV iron infusion. PLAN: 1. Continue knee immobilizer per ortho. Physical therapy is working with the patient. 2. Awaiting rehab placement per social worker clinical. Will advanced back-up on her metformin while holding her at this point. Continue low-dose SSI HIDA for urinary tract infection. Continue IV ceftriaxone and monitor blood counts. cc: Lars Bee MD
[2016-06-05] MEDS: GLUCOPHAGE PO SCH (18:27)
[2016-06-05] MEDS: ROCEPHIN 1 GM/NS 50 ML IV SCH (21:03)
[2016-06-05] MEDS: PRAVACHOL PO SCH (21:04)
[2016-06-05] MEDS: IMDUR PO SCH (21:04)
[2016-06-05] MEDS: NORVASC PO SCH (21:05)
[2016-06-06] MEDS: MORPHINE IV PRN ×2 (00:52→06:17)
[2016-06-06 05:36] LABS: MANUAL DIFF NEEDED? NO
[2016-06-06 05:48] LABS: BASO% 0.3 % (0.0-0.8); EOS# 0.11 X1000 (0.0-0.7); EOS% 1.9 % (0.0-10.0); HEMATOCRIT 27.9 % (37.0-47.0); HEMOGLOBIN 9.3 g/dL (12.0-16.0); LYMPH# 1.72 X1000 (1.2-3.4); LYMPH% 29.4 % (20.5-51.1); MCH 29.7 PG (27-31); MCHC 33.3 g/dL (33-37); MCV 89.1 FL (81-99); MONO# 0.66 X1000 (0.11-0.59); MONO% 11.3 % (1.7-9.3); MPV 9.6 FL (7.4-10.4); NEUT% 57.1 % (42.2-75.2); PLT 282 X1000 (130-400); RBC 3.13 XMIL (4.2-5.4)
[2016-06-06 06:08] LABS: AGAP 13; BUN 23 mg/dL (8-22); CHLORIDE 96 mmol/L (98-107); COSMO 271; POTASSIUM 4.5 mmol/L (3.5-5.1); SODIUM 131 mmol/L (136-145); TCO2 22 mmol/L (25-35)
[2016-06-06] MEDS: SODIUM CHLORIDE 0.9% INJ SCH (06:15)
[2016-06-06] MEDS: HUMULIN R SUBQ SCH ×2 (06:17→11:15)
[2016-06-06] MEDS ORDERED: PROTONIX PO SCH (07:00)
[2016-06-06] MEDS: PRINIVIL PO SCH (08:29)
[2016-06-06] MEDS: GLUCOPHAGE PO SCH (08:29)
[2016-06-06] MEDS: ASPIRIN PO SCH (08:30)
[2016-06-06] MEDS: LOPRESSOR PO SCH (08:30)
[2016-06-06] MEDS ORDERED: PLAVIX PO SCH (09:00)
[2016-06-06] MEDS ORDERED: OMNICEF PO SCH (09:00)
[2016-06-06] MEDS ORDERED: MIRALAX PO SCH (09:00)
--- NOTE | 2016-06-06 09:14 | PROGRESS NOTE ---
DATE: 06/06/2016 SUBJECTIVE: Patient doing better. No complaints. OBJECTIVE: Vital Signs: Afebrile. Vital signs stable. CV: RRR without murmur. Lungs: CTA. Abdomen: Soft. Active bowel sounds. NT, ND. No mass. No HSM. Extremities: Hematoma of right lower extremity at the hip and hamstring area. Left lower extremity is without calf tenderness, cords, or edema. Laboratory Data: Blood sugar is satisfactory. ASSESSMENT: 1. Hematoma of right hamstring/thigh/hip area. 2. Minimally displaced medial tibial plateau fracture on the right with nondisplaced proximal fibular fracture. 3. Obesity. 4. Coronary artery disease. 5. Hyperlipidemia. 6. Type 2 diabetes mellitus. 7. Hypertension. 8. Klebsiella urinary tract infection. PLAN: Can change from IV Rocephin to Omnicef to complete a 7 day course of antibiotics. Continue physical therapy out at rehab. They have a bed available apparently and she will be monitored on Accu-Cheks and will need resumption of Glucotrol XL 10 mg b.i.d. once she is eating better. She is back on her metformin now and off the sliding scale insulin. She will need consideration for prophylaxis of DVT with low-dose Lovenox. We have been holding that due to ongoing hematoma and requirement for 2 units PRBCs transfused during this hospitalization. She had a large hematoma on the right hamstring/hip area. She is back on her home medications otherwise. We will resume Plavix in addition to her aspirin now that she has been on long-term in regard to her heart. cc: Lars Bee MD
[2016-06-06 11:31] VITALS: BP 131/78
--- NOTE | 2016-06-06 11:38 | DISCHARGE SUMMARY ---
ADMISSION DATE: 06/01/2016 DISCHARGE DATE: 06/06/2016 DIAGNOSES: 1. Minimally displaced medial tibial plateau fracture. 2. Proximal nondisplaced fibula fracture. 3. Large contusion right hip and thigh area with large hematoma. 4. Acute blood loss anemia related to the hematoma hip and thigh. 5. Fall. 6. Coronary artery disease. 7. Hyperlipidemia. 8. Hypertension. 9. Type 2 diabetes mellitus. 10. Chronic cystitis followed by Urology with urine culture growing out Klebsiella sensitive to almost all antibiotics except ampicillin. 11. Obesity. PROCEDURES: 1. Blood transfusion x2. 2. Iron transfusion x1. 3. CT head and cervical spine, revealing no acute changes at the head, moderate cervical spondylosis, primarily with degenerative disk disease at C5-C6. 4. CT pelvis revealing large right hamstring intramuscular hematoma, gas pattern around the urinary bladder, diverticulosis. 5. Femur x-ray revealing no evidence of right femur fracture. 6. Knee x-ray on the right revealing nondisplaced fracture involving the medial tibial plateau and the proximal right fibula. CONSULTANTS: Dr. Fransisco Plaza, orthopedic surgeon. REASON FOR ADMISSION AND HOSPITAL COURSE: The patient is a 75-year-old white female followed in my medical practice. She was vacuuming and tripped and fell, and suffered an extremely large hematoma right posterior hip and hamstring area, and did not break anything in the femur or pelvis, but did suffer a medial tibial plateau fracture, mainly nondisplaced, and nondisplaced right proximal fibula fracture. Dr. Plaza was consulted and saw the patient, and recommended knee immobilizer for that and physical therapy work to try to help the patient with sitting on the side of the bed and mobilizing the patient. The patient developed profound anemia and required 2 units of PRBCs transfused over about a 4-day span, and that leveled out with a hemoglobin of 9.3, white count normal, and platelets normal. Blood sugar remained in the 100s to mid 250 range during hospitalization. She had complication of Klebsiella UTI, and she is followed by Urology for chronic cystitis and had a bladder diverticulum removed recently by them. This grew out Klebsiella and she was treated during the entire hospitalization with IV Rocephin. The patient was asymptomatic with that and did well. She was not eating great, but well enough. Blood sugars were stable and it was felt that she could be discharged to the rehabilitation facility to complete her convalescence. DISCHARGE MEDICATIONS: Norvasc 5 mg p.o. daily. Tylenol p.r.n. Ecotrin 81 mg p.o. daily. We will resume her Plavix at 75 mg p.o. daily. She did not take that during this hospitalization, but we will resume it out at the rehabilitation facility. She will be on Imdur 75 mg p.o. at bedtime. Lisinopril 40 mg p.o. daily. Metformin 1000 mg p.o. b.i.d. with meals. Metoprolol 25 mg p.o. q.12 hours. Protonix 40 mg p.o. daily. Pravachol 40 mg p.o. at bedtime. Omnicef 300 mg p.o. b.i.d. for an additional 3 days to complete course of antibiotics for her UTI. Ambien 5 mg p.o. at bedtime p.r.n. sleep. She will need resumption of her home medication in the form of glipizide ER 10 mg p.o. b.i.d. once her blood sugar requires and as she begins to eat better. She has been on 10 mg b.i.d. at home. Also, consideration should be given to institution of low-dose Lovenox to prevent DVT. We had held this during the hospitalization due to ongoing bleeding into contusion right hamstring/hip area, but this will need to be considered in the next 1-3 days out at the rehabilitation facility. OTHER PERTINENT DISCHARGE LABORATORIES: Sodium 131, potassium 4.5, chloride 96, CO2 of 22, BUN 23, creatinine 0.9, glucose 188. PT and PTT were normal. Again, she will just need the Omnicef for about 3 days. She will need Accu-Cheks at 7, 11, 4, and 9. cc: Lars Bee MD
== END 2016-06-06 15:04 ==
LOC: EDBD → ED 16:34 → 4N 23:27 → UNDOADMOB 06-01 00:30 → OBSVTOIN 06-01 19:02
PROVIDERS: ADMIT Family Medicine; ATTEND Family Medicine